=== PATIENT | female | born 1955 | race Caucasian/White ===

== ENCOUNTER 2024-03-21 12:29 | Emergency (ER) | payer BC ==
[2024-03-21] MEDS ORDERED: Sodium Chloride 0.9% 10 ML Syringe FLUSH PRN (12:58)
[2024-03-21] MEDS: Metoprolol Tartrate 5 MG/5 ML SDV IVPUSH ONE ×3 (13:05→14:32)
[2024-03-21 13:09] LABS: BASOPHILS PERCENT AUTO 0.3 % (0.0-1.0); EOSINOPHILS PERCENT AUTO 1.2 % (1.0-3.0); HEMATOCRIT 46.8 % (37.0-47.0); HEMOGLOBIN 14.2 g/dL (12.0-16.0); LYMPHOCYTES PERCENT AUTO 22.8 % (20.5-50.1); MEAN CORPUSCULAR HEMOGLOBIN 28.9 pg (27.0-34.0); MEAN CORPUSCULAR HGB CONC 30.3 g/dL (33.0-35.0); MEAN CORPUSCULAR VOLUME 95.1 fL (80-100); MONOCYTES PERCENT AUTO 7.8 % (2-8); NEUTROPHILS PERCENT AUTO 67.9 % (42.2-75.2); PLATELET COUNT,PLT 207 10^3/uL (150-450); RED BLOOD CELL COUNT 4.92 10^6/uL (4.2-5.4); WHITE BLOOD CELL COUNT,WBC 7.6 10^3/uL (5.0-10.0)
[2024-03-21] MEDS: Metoprolol Tartrate 5 MG/5 ML SDV ONE (13:17)
[2024-03-21 13:27] LABS: A/G RATIO 1.1; ANION GAP 15.6 mEq/L (7-13); BUN/CREATININE RATIO 11.4 (No establ ref range); CALCIUM 9.4 mg/dL (8.5-10.1); CREATININE 1.23 mg/dL (0.55-1.02); EST CRCL DRUG DOSING (CG) 43.16 mL/min; POTASSIUM,K 3.6 mmol/L (3.5-5.1); PROTEIN TOTAL,TP 7.5 g/dL (6.4-8.2)
[2024-03-21] MEDS: Digoxin 500 MCG/2 ML Amp IVPUSH ONE ×2 (13:55→14:08)
[2024-03-21 14:54] LABS: INR 1.1 (0.9-1.2); PROTHROMBIN TIME 11.3 SEC (9.0-12.0); PTT,PARTIAL THROMBOPLSTIN TIME 25.3 SEC (22.0-34.0)
[2024-03-21] MEDS: Heparin Sodium 5,000 Units/ML Vial IV ONE (14:56)
[2024-03-21] MEDS: Heparin Sodium/0.45% NaCl 25,000 UNITS/500 ML BAG IV SCH (15:02)
[2024-03-21] MEDS: Amiodarone 150 MG/3 ML SDV IVPUSH ONE (15:23)
[2024-03-21] MEDS: Amiodarone 150 MG/100 ML 100 ML IV ONE (15:23)
[2024-03-21] MEDS ORDERED: Amiodarone 150 MG/100 ML 150 MG in Premix Bag 1 BAG IV ONE (15:37)
[2024-03-21] MEDS: Amiodarone 360 MG/200 ML 360 MG/200 ML BAG IV ONE (15:41)
== END 2024-03-21 15:51 ==
LOC: DL.ED 12:29
DX: I48.91 Unspecified atrial fibrillation (principal); K21.9 Gastro-esophageal reflux disease without esophagitis; Z79.899 Other long term (current) drug therapy
CPT/HCPCS: 36415; 80053; 83735; 83880; 85025; 85610; 85730; 93005; 96365; 96375; 96376; 99285-25; J0282; J1160; J1644; J3490